=== PATIENT | female | born 1980 | race Caucasian/White ===

== ENCOUNTER 2017-08-27 09:30 | Outpatient (RCR) | payer OTHER, MEDICAID, SELFPAY ==
--- NOTE | 2017-07-02 11:33 | HP.PTEVAL_ITS ---
Patient's Visit Information NADYA GOMES is a 36 year old F referred to Physical Therapy by ESTEPHANIE BHAT with a diagnosis of pain in left foot. Date of Evaluation: 07/02/17 Physical Therapist: Chucky Ortega PT, - Visit Plan Frequency: 2x /Week Duration: 4 Weeks Plan: *Patient is WBAT with shoe,but uses boot at work with restrictions with sitting*. S/P subtalar fusion with achilles tendon lengthening. POC to include ROM,STRENGTHENING ANKLE ,PRORIOCEPTION,FLEXABILITY,BIKE/NUSTEP - Subjective Subjective: This 36 y/o female presents to physical therapy with left foot pain. Patient had ankle surgery fusion subtalar joint with screws and achilles tendon release Mar 02 by Estephanie Bhat at [facility]. Patient d/c same day with cast and crurches NWB left 12 weeks ,then in boot 6weeks but patient was too be 50% WB but patient weaned self with WBAT,thus DR said okay to be WBAT no boot,but patient has to wear boot at work per MD. did x-rays looked good.Patient has min pain. Patient continues to have some swelling. Patient has difficulty with stairs ,extended standing,walking and job demands with standing 8 hours. Patient is sitting at work with boot ,RTD in August to return full work duties of standing without boot.C/O parathesia occassionally. Sleeping good. Patient has h /o removing extra bone in left foot.Patient fabricated orthotics. SOCIAL: single. VOCATION: [employer] - Pain Left Ankle Pain Intensity (Out of 10): 0 Pain Intensity Range: 10 - Objective POSTURE: slight pes planus. GAIT: normal dilip helstrike toe off. PRIOPRIOCEPTION: poor left. NEURO: inact. PALPATION: tender lateral ankle, achilles tendon. EDEMA: joint line trimalleor 27 cm. AROM: DF 0 degrees.PF 40 degrees, EV 0 degrees,IN 15 degrees. MMT: anterior tibials 4/5,posterior tibials /pernoeus 4-/5,G-S 3/5 - Goals Goal 1:: Independan with HEP Goal Time Frame: 4-6 Weeks Goal 2:: Normailze gait community distances on even/uneven surfaces Goal Time Frame: 4-6 Weeks Goal 3:: Improve proprioception left to right to improve gait on uneven suraces Goal Time Frame: 4-6 Weeks Goal 4:: Patient improve strength ankle 4/5 and G-S to 4-/5 to impove function and gait. Goal Time Frame: 4-6 Weeks Goal 5:: Patient improve AROM left ankle by 5 degrees or greater to improve function Goal Time Frame: 4-6 Weeks - Rehabilitation Potential Physical Therapy Diagnosis: This patient underwent s/p subtalar fusion with achilles tendon lengthening Mar 02 ,place ion cast NWB 8WEEKS ,then 6 weeks in CAM boot progression to WBAT , Patient has current impairments with decrease ROM strength,proprioception deficits with gait and job demands Rehabilitation Potential: Good - Anticipated Interventions Patient/Client Instruction: Educate patient on: Condition, Plan of Care For the Purpose of:: To decrease pain, To increase ROM, To improve muscle performance and motor function, To improve ability to perform ADL's, To increase tolerance to activity/condition/position, To improve ability of physical actions for home/community/work/leisure, To increase flexibility/ROM, To improve ability to perform tasks related to life management Therapeutic Exercise to Include: Strength training, Balance training, Flexibilty training, Gait and locomotor training, Active ROM Comment: ANKLE/PROPRIOCEPTION For the Purpose of:: To decrease pain, To increase ROM, To improve muscle performance and motor function, To improve ability to perform ADL's, To increase tolerance to activity/condition/position, To improve ability of physical actions for home/community/work/leisure, To improve health of tissue, To decrease soft tissue restriction, To improve endurance TENS: Yes IF ES: Yes Cryotherapy (ice pack, ice massage): Yes Vasopneumatic device: Yes For the Purpose of:: To decrease pain, To decrease swelling/inflammation, To decrease soft tissue restriction, To increase flexibility/ROM Thank you for the opportunity to evaluate your patient. For Medicare and Medicare HMO plans, please review the plan of care and approve it. It will need to be FAXED BACK to us at [phone] for Medicare purposes. Please let me know if there are questions or concerns regarding this plan of care. Physician Signature: Date:
--- NOTE | 2018-01-24 11:29 | HP.PTDCNRP_ITS ---
HP - Discharge Summary (1) - Patient Information NADYA GOMES was seen in my office for initial evaluation on 07/02/17. The following Plan of Care was established for this patient: Initial Frequency: 2x /Week Initial Duration: 4 Weeks - Anticipated Interventions Patient/Client Instruction: Educate patient on: Condition, Plan of Care For the Purpose of:: To decrease pain, To increase ROM, To improve muscle perfo rmance and motor function, To improve ability to perform ADL's, To increase tolerance to activity/condition/position, To improve ability of physical actions for home/community/work/leisure, To increase flexibility/ROM, To improve ability to perform tasks related to life management Therapeutic Exercise to Include: Strength training, Balance training, Flexibilty training, Gait and locomotor training, Active ROM For the Purpose of:: To decrease pain, To increase ROM, To improve muscle performance and motor function, To improve ability to perform ADL's, To increase tolerance to activity/condition/position, To improve ability of physical actions for home/community/work/leisure, To improve health of tissue, To decrease soft tissue restriction, To improve endurance TENS: Yes IF ES: Yes Cryotherapy (ice pack, ice massage): Yes Vasopneumatic device: Yes For the Purpose of:: To decrease pain, To decrease swelling/inflammation, To decrease soft tissue restriction, To increase flexibility/ROM This patient was last seen in our office 08/27/17. Pertinent comments regarding their Physical therapy will appear below: Patient seen for PT for pain in right foot from fx s/p surgery with PT tx focusing on ROM,strength,propriocepton . Patient progressed well towards goals.Thus is d/c At this point I will be discontinuing this patient from physical therapy. I would be happy to see this patient again in the future if found appropriate by the physician. Thank you! Chucky Ortega, PT,
== END 2017-08-27 19:00 | disposition home or self-care (01) ==
LOC: PT 09:30
PROVIDERS: Family Provider Family Medicine; PCP Family Medicine
DX: M79.672 Pain in left foot (principal)
CPT/HCPCS: 97110; 97161; 97530

== ENCOUNTER 2018-11-08 21:30 | Emergency (ER) | payer OTHER, SELFPAY ==
[2018-11-08 21:31] VITALS: BP 137/71; PULSE 78; RESP 16; TEMP 36.8; O2SAT 99; BMI 29.2
--- NOTE | 2018-11-08 21:34 | ED.RN ---
NO OLD EKGS IN MUSE
--- NOTE | 2018-11-08 21:39 | EKG12_ITS ---
Test Reason : CP Blood Pressure : / mmHG Vent. Rate : 078 BPM Atrial Rate : 078 BPM P-R Int : 150 ms QRS Dur : 088 ms QT Int : 386 ms P-R-T Axes : 047 057 012 degrees QTc Int : 440 ms Normal sinus rhythm Normal ECG Confirmed by YARELI MONTANA, MELANIE ([id number]), newspaper or periodical editor PIERO SHANNON ([id number]) on 11/11/2018 1:50:26 PM Referred By: HERACLIO Confirmed By:TOVA DOWNS MD
--- NOTE | 2018-11-08 21:39 | RAD_ITS ---
STUDY: X-RAY CHEST REASON FOR EXAM: Female, 38 years old. Chest pain TECHNIQUE: Frontal and lateral views of the chest COMPARISON: None. FINDINGS: The lungs are clear. There are no pleural effusions. There is no pneumothorax. The heart is normal in size. The visualized osseous structures are within normal limits. RAD/Chest PA and Lateral IMPRESSION: No acute thoracic pathology. Electronically Signed: Everett Aguirre, at 22:33 EDT Tel , Service support ,
--- NOTE | 2018-11-08 21:41 | ED.DCSUM_ITS ---
History of Present Illness Chief Complaint: Chest Pain Informant: Patient Onset: Today Context: Gradual Onset Timing: Continuous Current Severity: Moderate Maximum Severity: Moderate Narrative: Patient presents to the emergency department with right arm tingling and a left- sided chest pain. She states she was at work. She began to have paresthesias in her right arm. She states that did not really wax and wane but had maintained tingling down her arm. States is not really numb, but does have the sensation of tingling. She also began to have some tightness across her left chest. It does not radiate to her neck. She denies any shortness of breath. The patient does have a history of hypertension, but no history of coronary vascular disease. She is otherwise been in her normal state of health. Prior similar symptoms: No Recent Illness/Hospitalization: No Past Medical History - Allergies and Home Meds Allergies/Adverse Reactions: Allergies No Known Allergies Allergy (Verified 11/08/18 21:36) Primary Care Physician: Derrick Lopez, FOOD PRODUCTION SUPERVISOR-C [Primary Care Provider] - Prior records reviewed: Yes Past Medical History: - - Hypertension Smoking Status: Current every day smoker Review of Systems General: Denies: Chills, Fever, Sweats Eyes: Denies: Visual changes - bilaterally, Diplopia ENT: Denies: Rhinorrhea, Sore throat Cardiovascular: Reports: Chest pain. Denies: Palpitations Respiratory: Denies: Dyspnea, Cough, Dyspnea on exertion Gastrointestinal: Denies: Abdominal pain, Nausea, Vomiting, Diarrhea, Melena, Hematochezia Genitourinary: Denies: Dysuria, Hematuria, Frequency Musculoskeletal: Denies: Back pain, Extremity Pain Skin: Denies: Rash, Wounds Neurological: Reports: Parasthesia. Denies: Headache, Weakness, Numbness Physical Exam Vital Signs/Narrative: Vital Signs Temp Pulse Resp BP Pulse Ox 11/08/18 21:31 98.3 F 78 16 137/71 H 99 Inital Vital Signs reviewed: Yes General: Well nourished, Well developed, No Acute Distress Head: Normocephalic, Atraumatic Eyes: Perrl, EOMI ENT: Moist mucous membranes, No rhinorrhea Neck: Supple, Nontender Cardiovascular: Regular rate, Regular rhythm, No murmurs Respiratory: No distress, CTA bilaterally, Chest nontender Abdomen: Soft, Nontender, Nondistended, Normal bowel sounds Back: Nontender, Normal Inspection Extremities: Nontender, No edema Skin: Normal color, No rash Neurological: Alert, Oriented x3, Cranial nerves II-XII grossly intact, Normal Strength, Normal Sensation Psychological: Normal affect, Normal Mood Diagnostic/Tx/Re-eval Chest X-Ray - ED: 2 View, Read by ED Physician, Normal, Heart, Lungs, Mediastinum Clinical Impression(s) from Imaging Studies Chest X-Ray 11/08/18 21:39 IMPRESSION: No acute thoracic pathology. Electronically Signed: Everett Aguirre, at 22:33 EDT Tel , Service support , Abnormal Lab Results 11/08/18 11/08/18 11/08/18 22:00 22:00 22:00 WBC 12.1 H RBC 5.10 Hgb 14.9 Hct 43.9 MCV 86.1 MCH 29.2 MCHC 33.9 RDW Std Deviation 39.8 RDW Coeff of Tenzin 12.8 Plt Count 277 MPV 10.0 Immature Gran % (Auto) 0.200 Neut % (Auto) 58.9 Lymph % (Auto) 35.1 [place] % (Auto) 4.0 Eos % (Auto) 1.4 Baso % (Auto) 0.4 Absolute Neuts (auto) 7.1 Absolute Lymphs (auto) 4.23 Nucleated RBC % 0 D-Dimer Quant (PE/DVT) 0.27 Sodium 141 Potassium 2.9 L Chloride 103 Carbon Dioxide 28.0 Anion Gap 10 BUN 14 Creatinine 0.90 Estim Creat Clear Calc 82.42 Est GFR (MDRD) Af Amer 90 Est GFR (MDRD) Non-Af 75 BUN/Creatinine Ratio 15.6 Glucose 104 Calcium 9.5 Magnesium 2.2 Troponin I < 0.015 - Rhythm Strip Rhythm Strip: Sinus Rhythm Rate: 70 Ectopy: None - EKG Initial EKG Interpretation: Sinus Rhythm, No Acute Injury Pattern Prior: Unchanged - Medical Decision Making The patient returns emergency department paresthesias in the right arm and some tightness across her left chest. She denies shortness of breath. EKG was obtained. With sinus rhythm without change. Patient was given aspirin. She was kept on a monitor. There was no arrhythmia genic events. Chest x-rays obtained was unremarkable. There is no evidence of acute process. Screening labs show normal cardiac enzymes and d-dimer. The patient is hypokalemic. I do feel this is likely the cause of her symptoms. Potassium will be replaced. The patient's symptoms do not seem consistent with acute coronary syndrome. I do feel that she is safe for outpatient therapy. She was counseled concerning symptoms and reasons to return. She will be discharged home. Impression 1. Hypokalemia with paresthesia ED Disposition - Plan for ED Patient: Instructions: CHEST PAIN, NonCardiac, Hypokalemia Prescriptions: Potassium Chloride 20 meq PO DAILY #7 [email or web address] Prescription Printed Referrals: Derrick Lopez, BHAKTI-C [Primary Care Provider] -
[2018-11-08] MEDS: Aspirin 81 MG TAB.CHEW 324 MG PO (21:55)
[2018-11-08] MEDS: 0.9% Normal Saline 1,000 ML 1000 ML IV (21:56)
[2018-11-08 22:09] LABS: Absolute Lymphocyte Count 4.23 X10^3/uL (0.83-4.51); Absolute Neutrophil Count 7.1 X10^3/uL (2.0-7.7); Basophil# 0.05 X10^3/uL; Basophil% 0.4 % (0-1); Eosinophil# 0.17 X10^3/uL; Eosinophils% 1.4 % (0-5); Hematocrit 43.9 % (37-47); Hemoglobin 14.9 g/dL (12.0-15.0); Lymphocyte # 4.23 X10^3/ul (4.0); Lymphocyte % 35.1 % (19-41); Mean Corp Hgb Conc 33.9 g/dL (32-36); Mean Corpuscular Hgb 29.2 pg (27.0-32.0); Mean Corpuscular Volume 86.1 fL (81-99); Monocyte# 0.48 X10^3/uL; NRBC Flagged by Analyzer 0 % (0-5); Neutrophil # 7.09 X10^3/uL (2.7-7.7); Neutrophil % 58.9 % (47-70); POSITIVE MORPHOLOGY YES; Platelet Count 277 K/mm3 (150-450); RBC Distribution Width CV 12.8 % (11.6-14.6); RBC Distribution Width SD 39.8 fl (35.1-43.9); White Blood Count 12.1 K/mm3 (4.4-11.0)
[2018-11-08 22:30] LABS: Anion Gap 10 (5-15); BUN 14 mg/dL (7-18); BUN/Creat Ratio 15.6 RATIO (10-20); Calcium,Total 9.5 mg/dL (8.5-10.1); Chloride 103 mmol/L (98-107); EST Glomerular Filtration Rate 75 mL/min (>60); Est Glom Filt Rate - Afr Amer 90 mL/min (>60); Estimated Creatinine Clearance 82.42 ml/min; Glucose 104 mg/dL (74-106); Magnesium 2.2 mg/dL (1.6-2.6); Potassium 2.9 mmol/L (3.5-5.1); Sodium Level 141 mmol/L (136-145)
[2018-11-08 22:34] LABS: Differential Indicated SCAN CRITERIA MET
[2018-11-08 22:42] LABS: D-Dimer Quantitative (DVT/PE) 0.27 FEU/ug/m (0.27-0.49)
[2018-11-08 22:47] VITALS: BP 126/74; PULSE 71; RESP 17; O2SAT 97
[2018-11-08 23:43] LABS: Atypical Lymphocyte 2+ %; Differential Comment SCANNED
== END 2018-11-08 22:52 | disposition home or self-care (01) ==
LOC: ED 22:24
PROVIDERS: Emergency Provider Emergency Medicine; Family Provider Nurse Practitioner Family; PCP Nurse Practitioner Family
DX: E87.6 Hypokalemia (principal); R20.2 Paresthesia of skin; I10 Essential (primary) hypertension; Z79.899 Other long term (current) drug therapy; F17.200 Nicotine dependence, unspecified, uncomplicated
CPT/HCPCS: 36415; 71046; 80048; 83735; 84484; 85025; 85379; 93005; 96360; 99285; A4216

== ENCOUNTER 2018-12-09 22:18 | Emergency (ER) | payer OTHER, SELFPAY ==
[2018-12-09 22:18] VITALS: BP 123/77; PULSE 79; RESP 15; TEMP 36.5; O2SAT 99; BMI 29.2
--- NOTE | 2018-12-09 22:30 | RAD_ITS ---
LEFT HAND PAIN IN THE MIDDLE OF HAND/INJURY AT WORK EXAMINATION/TECHNIQUE: XR Left hand 3 views COMPARISON: None FINDINGS: No fracture, dislocation, or bony abnormality. Joint spaces appear preserved. Normal bony alignment. As visualized, the soft tissues are negative. No radiopaque foreign body. RAD/Hand Min 3 Views IMPRESSION: Normal exam, left hand. at 2304 Reported and signed by: Marcio Sexton MD Electronically Signed: Marcio Sexton, at 23:03 EDT Tel , Service support ,
--- NOTE | 2018-12-09 22:30 | ED.VIS.GEN ---
History of Present Illness Chief Complaint: Upper Extremity Injury Informant: Patient Onset: Today Context: Sudden Onset Timing: Continuous Quality: Pain Location: Left hand Current Severity: Mild Maximum Severity: Moderate Worsened by: Use and touch Relieved by: Rest Associated Symptoms: No paresthesia, anesthesia or motor weakness Narrative: Patient is a 38-year-old [id number] woman who presents because of blunt trauma to her left hand. She is localizing the pain over the second and third metacarpal. She denies paresthesia, anesthesia motors. She reports pain with use. This occurred at work. She states her hand was smashed between palate. Prior similar symptoms: No Recent Illness/Hospitalization: No - Past Medical History (1) No significant past medical history Status: Acute Past Medical History - Allergies and Home Meds Allergies/Adverse Reactions: Allergies No Known Allergies Allergy (Verified 12/09/18 22:24) Primary Care Physician: Derrick Lopez NP-C [Primary Care Provider] - Prior records reviewed: No Past Medical History: None Surgical History: noncontributory Lives: Spouse/ Significant Other Smoking Status: Current every day smoker Alcohol: Rare Review of Systems Musculoskeletal: Reports: Swelling, Extremity Pain. Denies: Myalgias, Neck pain Skin: Denies: Rash, Wounds Neurological: Denies: Weakness, Parasthesia, Numbness Hematologic: Denies: Easy bruising, Easy bleeding Physical Exam Vital Signs/Narrative: Vital Signs Temp Pulse Resp BP Pulse Ox 12/09/18 22:18 97.7 F L 79 15 123/77 H 99 Inital Vital Signs reviewed: Yes General: Well nourished, Well developed, No Acute Distress Eyes: Perrl, EOMI. Negative for: Pale conjunctiva, Scleral icterus Cardiovascular: Regular rate, Regular rhythm, - - Your pulse is palpable and 2+ Respiratory: No distress Extremities: No edema, Tenderness - Nurse over the second and third metacarpal bone. There is slight soft tissue swelling noted. Median, radial and ulnar function are intact.. Negative for: Nontender Neurological: Alert, Oriented x3, Normal Strength, Normal Sensation Psychological: Normal affect Diagnostic/Tx/Re-eval 12/09/18 22:30 Hand Min 3 Views [RAD] Stat Three-view x-ray of the left hand was interpreted by me as negative for fracture, subluxation or dislocation. There is soft tissue swelling noted lateral view dorsal surface. Patient was treated for contusion. - Medical Decision Making X-ray the hand was obtained to rule out fracture versus contusion ED Disposition - Plan for ED Patient: Disposition: Home or Assisted Living Diagnosis: Contusion of left hand, initial encounter Instructions: CONTUSION, Hand Referrals: Derrick Lopez, BHAKTI-C [Primary Care Provider[facility] [place] [GROUP OF PHYSICIANS] - 3-5 Days Additional Instructions: Rest, elevation, ice and you may take either 4 ibuprofen tablets every 8 hours or 2 Aleve tablets every 12 hours. Do not take Advil or Aleve for greater than 5 days.
[2018-12-09 23:05] VITALS: RESP 18
== END 2018-12-09 23:05 | disposition home or self-care (01) ==
PROVIDERS: Emergency Provider Emergency Medicine; Family Provider Nurse Practitioner Family; PCP Nurse Practitioner Family
DX: S60.222A Contusion of left hand, initial encounter (principal); W23.0XXA Caught, crushed, jammed, or pinched between moving objects, initial encounter; Y93.9 Activity, unspecified; Y92.9 Unspecified place or not applicable; F17.200 Nicotine dependence, unspecified, uncomplicated
CPT/HCPCS: 73130; 99282; A4216

== ENCOUNTER 2019-01-09 18:48 | Emergency (ER) | payer OTHER, SELFPAY ==
[2018-12-13 08:14] VITALS: BMI 29.2
[2019-01-09 18:50] VITALS: BP 126/72; PULSE 77; RESP 12; TEMP 36.1; O2SAT 97; BMI 28.2
[2019-01-09] MEDS: Tetracaine 0.5% Ophthalmic Bottle OPHTHALMIC (20:30)
[2019-01-09] MEDS: Fluorescein 1 MG STRIP 1 STRIP OPHTHALMIC (20:30)
--- NOTE | 2019-01-09 20:32 | ED.DCSUM_ITS ---
- ER Visit Summary Date of Service: 01/09/19 Chief Complaint: Left eye red History of Present Illness: The patient is a 38 F who sees Jacob Trivedi. She does not wear contacts. She does wear glasses at work. She reports that 2 days ago she initially had a foreign body sensation in her left eye. This is resolved. She denies any pain or photophobia. However, she reports that her left eyes been red and watering and itching since that time. She denies any change in her vision. No injury to her eye that she can think of. Review of systems is negative. Physical Examination: Vitals: Stable. Afebrile. General: Well-nourished and well-developed. Head: Normocephalic atraumatic. Eyes: Edema of her left upper and lower eyelids. This is worse on the upper eyelid. There is no erythema or induration to suggest infection. The upper eyelid was everted. There is no foreign material under it. She does have diffuse conjunctival injection. There is also chemosis medially. There is no forcing dye uptake or foreign body. Extraocular motions are intact. Pupils are equal round reactive light. Neck: Supple, no lymphadenopathy. No JVD. Nontender. Cardiovascular: Regular rate and rhythm. No murmurs. Respiratory: No respiratory distress. Clear to auscultation bilaterally. Abdominal: Soft, nontender, nondistended, normal bowel sounds. No guarding, rebound, or peritoneal signs. Back: Nontender. Extremities: Nontender, no edema. Skin: Normal color, no rash. Neurologic: Alert and oriented ?3. Cranial nerves II through XII are intact. Normal strength and sensation. Psych: Normal affect. Emergency Department Course and Treatment: Patient is resting comfortably without complaint. Treatment Plan: Discussed the patient at this time I do not have an explanation for the conjunctivitis on the left. With the itching and swelling I suspect that this may be somewhat allergic in etiology. She is instructed to ice the eye. She also be discharged with Naphcon-A eyedrops. Instructed to follow-up with Dr. Mathews in 2 days for another exam. Return to the emergency department for any worsening symptoms. Disposition: To home in improved and stable condition. Impression: 1. Conjunctivitis on left. This note was generated with Apogenixation software. It may contain incorrect words, spelling, and punctuation that were not noted in review of the chart p rior to signing ED Disposition - Plan for ED Patient: Disposition: Home or Assisted Living Instructions: CONJUNCTIVITIS, Allergic Prescriptions: Naphazoline HCl/Phenir Mal [Naphcon-A Eye Drops] 1 drp LEFT EYE 4X/DAY #1 bottle Prescription Printed Referrals: Yesi Mathews MD [STAFF PHYSICIAN] - 2 Days
== END 2019-01-09 20:40 | disposition home or self-care (01) ==
LOC: ED 19:12
PROVIDERS: Emergency Provider Emergency Medicine; Family Provider Nurse Practitioner Family; PCP Nurse Practitioner Family
DX: H11.422 Conjunctival edema, left eye (principal); F17.200 Nicotine dependence, unspecified, uncomplicated
CPT/HCPCS: 99283

== ENCOUNTER 2022-03-18 16:43 | Emergency (ER) | payer OTHER, MEDICAID, SELFPAY ==
[2022-03-18 16:44] VITALS: BP 123/74; PULSE 80; RESP 16; TEMP 35.8; O2SAT 100; BMI 30.4
--- NOTE | 2022-03-18 17:17 | RAD_ITS ---
STUDY: X-RAY - RIGHT KNEE REASON FOR EXAM: Female, 41 years old. Right knee injury yesterday at work. Bumped into by tow motor. Right knee buckled. TECHNIQUE: 4 view(s) of the knee. COMPARISON: None. FINDINGS: Normal visualized distal femur. Normal visualized proximal tibia and fibula. Normal proximal tibiofibular articulation. There is no acute fracture, dislocation or destructive osseous pathology. Normal medial femorotibial compartment. Normal lateral femorotibial compartment. Normal patellofemoral articulation. There is no demonstrated joint effusion. The soft tissue structures are unremarkable. RAD/Knee 4 or More Views IMPRESSION: No visualized fracture or dislocation of the right knee. Electronically Signed: Dez Underwood DO at 17:28 EST ,
--- NOTE | 2022-03-18 17:37 | EX.ED.DYSGE1 ---
HPI History of Present Illness Chief Complaint: Lower Extremity Injury Onset/Context/Timing Onset: Yesterday Narrative Narrative: 41-year-old female presenting with right knee pain. Patient states she was at work yesterday standing when a tow motor ran into the side of her right knee. She did not fall to the ground. She was able to ambulate with pain. She has been taking ibuprofen and Tylenol at home. Denies other injuries. Prior similar symptoms: No Recent Illness/Hospitalization: No PFSH PFSH Medical History Hypertension Home Medications hydrochlorothiazide 25 mg tablet 25 mg PO DAILY 02/06/17 [History Last Taken 02/06/17] simvastatin 20 mg tablet 20 mg PO DAILY 02/06/17 [History Last Taken 02/06/17] pantoprazole 40 mg tablet,delayed release 40 mg PO DAILY 11/08/18 [History Last Taken Unknown] naphazoline 0.025 %-pheniramine 0.3 % eye drops 1 drp LEFT EYE 4X/DAY ##1 01/09/19 [Rx Last Taken Unknown] Allergy/AdvReac Type Severity Reaction Status Date / Time No Known Allergies Allergy Verified 03/18/22 16:44 Surgical History History of ankle surgery History of knee surgery History of tonsillectomy and adenoidectomy Social History Smoking Status: Current every day smoker alcohol intake: never ROS ROS ED Constitutional Constitutional ED: Denies fever(s) ENT ENT ED: Denies rhinorrhea or sore throat Cardiovascular Cardiovascular: Denies chest pain Respiratory/Chest Respiratory/Chest: Denies cough or dyspnea Musculoskeletal Musculoskeletal: Reports other Details: right knee pain ; Denies myalgias Integumentary Denies rash Neurologic Neurologic: Denies headache(s) Psychiatric Psychiatric: Denies suicidal thoughts EXAM Physical Exam Const Vital Signs: 03/18/22 16:44 Temperature 96.4 F L Temperature Source Temporal Pulse Rate 80 Respiratory Rate 16 Blood Pressure 123/74 H Blood Pressure Mean 90 Pulse Ox 100 Oxygen Delivery Method Room Air Positive well nourished and well developed General Appearance ED: well developed HEENT Reports normocephalic and head/scalp atraumatic Eyes PERRL and EOMs intact bilaterally Neck supple General: Negative for tenderness Chest Wall inspection of chest normal Resp normal respiratory effort and clear to auscultation bilaterally Cardio regular rate and regular rhythm no CVA tenderness Extremity normal to inspection Extremity Narrative: right lateral knee mild tenderness to palpation. No wounds. Active full range of motion. Neuro oriented x3 Sensorium / Orientation: alert Psych mental status grossly normal MDM MDM MDM Narrative Medical decision making narrative: 41-year-old female presenting with right knee pain. Differential diagnosis includes sprain/strain, contusion, fracture. X-ray right knee read by myself and radiology shows no visualized fracture or dislocation. Patient is advised to ice and elevate. Advised to continue NSAIDs for pain. Advised to follow-up with corporate care. Advised to return to the ED for worsening complaints. Radiography Diagnostic Testing: Clinical Impression(s) from Imaging Studies Knee X-Ray 03/18/22 17:17 IMPRESSION: No visualized fracture or dislocation of the right knee. Electronically Signed: Dez Underwood DO at 17:28 EST Reading Location ID and State: [address] [place] [address] Tel [phone], Service support , Discharge Plan Triage Chief Complaint: Lower Extremity Injury ED Provider: Nelida Anderson Dx/Rx/DC Orders Clinical Impression: Contusion of knee, right, Injury of knee, right Instructions: Bruises (Contusions) Prescriptions: No Action simvastatin 20 MG tablet 20 mg PO DAILY hydrochlorothiazide 25 MG tablet 25 mg PO DAILY pantoprazole 40 MG tablet 40 mg PO DAILY naphazoline-pheniramine 1 DROP drops 1 drp LEFT EYE 4X/DAY Qty: 1 0RF Primary Care Provider: Derrick Lopez NP [facility] - Derrick Lopez MARKETING ADMIN, MARKETING ADMIN-C [Primary Care Provider] - Disposition Disposition: Home, Self Care
== END 2022-03-18 18:59 | disposition home or self-care (01) ==
PROVIDERS: Emergency Provider Emergency Medicine; PCP Nurse Practitioner Family; Visit Provider Emergency Medicine
DX: S80.01XA Contusion of right knee, initial encounter (principal); F17.200 Nicotine dependence, unspecified, uncomplicated; I10 Essential (primary) hypertension; Z79.899 Other long term (current) drug therapy; V83.7XXA Person on outside of special industrial vehicle injured in nontraffic accident, initial encounter; Y93.89 Activity, other specified; Y92.89 Other specified places as the place of occurrence of the external cause; Y99.0 Civilian activity done for income or pay
CPT/HCPCS: 73564; 99282